=== PATIENT | male | born 1955 | race Caucasian/White ===

== ENCOUNTER 2020-10-15 20:34 | Emergency (ER) | payer SELFPAY ==
--- NOTE | ~2020-10-15 | XR_ITS ---
EXAMINATION: XR chest 2V DATE: 10/15/2020 21:48 INDICATION: Shortness of breath. Dizziness. TECHNIQUE: Frontal and lateral views of the chest were obtained on 3 radiographs. COMPARISON: None. FINDINGS: The lungs are hyperexpanded, consistent with chronic obstructive pulmonary disease. There i s mild scarring at the lung apices. 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 No pleural effusion or pneumothorax. The heart size is normal. IMPRESSION: 1. Chronic obstructive pulmonary disease. Reviewed, dictated and finalized at location A.
[2020-10-15 20:37] VITALS: BP 152/89; PULSE 102; RESP 24; TEMP 36.8; O2SAT 95
--- NOTE | 2020-10-15 20:38 | ED.SOB ---
HPI - SOB/Dyspnea General Chief Complaint: Shortness of Breath/Dyspnea Stated Complaint: sob Time Seen by Provider: 10/15/20 20:38 History of Present Illness HPI Narrative: 65 yo male with h/o COPD presents to the ED for SOB. He reports that he has had repeated episodes of SOB throughout the day. He says that he will feel fine then get himself all worked up and get short of breath agin. He says that he has been using his inhaler more than he is supposed to. Related Data Allergies Allergy/AdvReac Type Severity Reaction Status Date / Time No Known Allergies Allergy Mild Unverified 12/18/08 13:36 Review of Systems Review of Systems: All systems reviewed & are unremarkable except as noted in HPI and below Constitutional: Constitutional: Denies fever(s) ENT: Denies dizziness Cardiovascular: Cardiovascular: Denies chest pain Respiratory: Respiratory: Reports dyspnea and Reports wheezing Gastrointestinal: Gastrointestinal: Reports no additional gastrointestinal complaints Neurologic: Reports system reviewed and no additional complaints, except as documented Psychiatric: Psychiatric: Reports anxiety [facility] Past Medical History Medical History (Updated 10/19/20 @ 17:37 by Olu Parr MD) COPD (chronic obstructive pulmonary disease) Social History Social History (Updated 10/19/20 @ 17:38 by Olu Parr MD) Smoking status: Current every day smoker Gender identity (if verbalized by the patient): Male Exam Const: General: no acute distress and alert Orientation/consciousness: patient oriented x3 HENMT: Head: normal to inspection Neck: Neck: normal visual inspection Chest: Chest palpation & inspection: no tenderness Resp: Effort & Inspection: not labored and tachypneic Auscultation: clear to auscultation bilaterally, rhonchi, wheezes and diminished lung sounds Cardio: Jugular venous distension: no JVD Rate: regular rate Rhythm: regular rhythm Heart sounds: no murmurs GI: Inspection: non-distended GI Palp: Yes Soft to palpation and No Tenderness to palpation present (GI) Skin: General skin exam: normal color Neuro: General: patient oriented x3 and moves all extremities Speech: normal speech Gait exam (Neuro): Normal gait present Extrem: General: no edema Psych: Appearance: well kempt Affect: Anxious affect present Course Vital Signs Vital signs: Vital Signs Temperature 36.8 C 10/15/20 20:37 Pulse Rate 102 H 10/15/20 20:37 Respiratory Rate 24 H 10/15/20 20:37 Blood Pressure 152/89 H 10/15/20 20:37 Pulse Oximetry 95 10/15/20 20:37 Temperature 36.8 C 10/15/20 20:37 Pulse Rate 92 10/16/20 00:11 Respiratory Rate 18 10/16/20 00:11 Blood Pressure 162/90 H 10/16/20 00:11 Pulse Oximetry 95 10/16/20 00:11 MDM - SOB/Dyspnea MDM Narrative Medical decision making narrative: Improvement with nebulizer treatment. He reports that he has never had to take oral steroids for his COPD. I think a burst could significantly improve his symptoms. I will also prescribe a course of levaquin for his exacerbation. He is not interested in being admitted at this time. Differential Diagnosis Differential diagnosis: Likely acute exacerbation of chronic obstructive airways disease Medical Records Attestation: I reviewed the patient's medical records. Lab Data Attestation: I reviewed the patient's lab results. Result diagrams: 10/15/20 21:05 10/15/20 21:05 Labs: Lab Results 10/15/20 10/15/20 10/15/20 Range/Units 21:05 21:05 21:06 WBC 13.3 H (4.5-10.0) K/mm3 RBC 4.37 L (4.6-6.20) M/mm3 Hgb 14.3 (14.0-18.0) g/dL Hct 43.3 (42.0-52.0) % MCV 99.1 (80-100) fl MCH 32.7 (26-34) pg MCHC 33.0 (32-36) g/dl RDW 14.6 H (11.5-14.5) % Plt Count 233 (150-375) k/mm3 MPV 9.9 (7.4-10.4) fl Immature Gran % (Auto) 0.8 H (0-0.5) % Neut % (Auto) 57.7 (45.5-73.1) % Lymph % (Auto) 31.3
--- NOTE | 2020-10-15 20:50 | ECG_ITS ---
Measurements Intervals Uriah Rate: 87 P: 83 HI: 144 QRS: 66 QRSD: 118 T: 62 QT: 362 QTc: 437 Interpretive Statements SINUS RHYTHM INCOMPLETE RIGHT BUNDLE BRANCH BLOCK BASELINE ARTIFACT- I, III, AVL BORDERLINE ECG Electronically Signed On 10-16-2020 7:41:14 CDT by Hermann Turner D.O.
[2020-10-15] MEDS: SODIUM CHLORIDE 0.9% IV 1,000 ML 999 ML IV CONT (21:03)
[2020-10-15] MEDS: DEXAMETHASONE SOD PHOS INJ 4 MG/ML VIAL 10 MG IV PUSH (21:03)
[2020-10-15 21:10] VITALS: PULSE 85; RESP 19
[2020-10-15] MEDS: IPRATROPIUM BR 0.02% INH SOLN 0.5 MG/2.5 ML VIAL INHALATION (21:10)
[2020-10-15] MEDS: ALBUTEROL SULFATE NEB 2.5 MG/0.5 ML INH 5 MG INHALATION (21:10)
[2020-10-15 21:14] LABS: Basophils Absolute Auto 0.1 K/mm3 (0.0-0.1); Basophils Percent Auto 0.6 % (0.2-1.2); Eosinophils Absolute Auto 0.2 K/mm3 (0-0.3); Eosinophils Percent Auto 1.4 % (0-4.4); Hematocrit 43.3 % (42.0-52.0); Hemoglobin 14.3 g/dL (14.0-18.0); Immature Granulocyte Percent A 0.8 % (0-0.5); Lymphocytes Absolute Auto 4.17 K/mm3 (0.9-3.2); Lymphocytes Percent Auto 31.3 % (18.3-44.2); Mean Corpuscular Hemoglobin 32.7 pg (26-34); Mean Corpuscular Volume 99.1 fl (80-100); Mean Platelet Volume 9.9 fl (7.4-10.4); Monocytes Absolute Auto 1.1 K/mm3 (0.1-0.6); Monocytes Percent Auto 8.2 % (2.6-8.5); Neutrophils Absolute Auto 7.7 K/mm3 (1.3-6.7); Neutrophils Percent Auto 57.7 % (45.5-73.1); Platelet Count Result 233 k/mm3 (150-375); Red Blood Count 4.37 M/mm3 (4.6-6.20); Red Cell Distribution Width 14.6 % (11.5-14.5); White Blood Count 13.3 K/mm3 (4.5-10.0)
[2020-10-15 21:19] LABS: Alveolar/Arterial O2 Gradient 29.3 mmHg; Base Excess ABG 2.6 mEq/l (+/-2.0); Carboxyhemoglobin 3.7 % THb (0-2.0); Device ROOM AIR; Fractional Inspired Oxygen 21 %; HCO3 ABG 26.6 mEq/l (22.0-26.0); Methemoglobin ABG 0.2 %THb (0-1.5); Modified Allen's Test Pass; Oxygen Content ABG 18.8 %vol (16.0-22.0); Oxygen Saturation ABG 95.5 % (95.0-100.0); Oxyhemoglobin 91.7 % THb (90.0-100.0); PO2 ABG 73.7 mmHg (80.0-100.0); PO2 FiO2 Ratio Arterial Blood 3.51 %; Reduced Hemoglobin 4.4 %THb (0-5.0); Site Drawn RIGHT RADIAL; Total Hemoglobin 14.6 g/dL (12.0-18.0); pH ABG 7.452 (7.350-7.450)
[2020-10-15 21:23] LABS: Anion Gap 9 mmol/L (8-16); Blood Urea Nitrogen 16 mg/dL (9-20); Calcium 9.6 mg/dL (8.4-10.2); Carbon Dioxide 30 mmol/L (22-30); Chloride 100 mmol/L (98-107); Estimated CRCL calculation 65 ml/min; Estimated Glomerular Filt Rate > 60; Glucose 102 mg/dL (75-110); Potassium 4.5 mmol/L (3.4-5.0); Sodium 139 mmol/L (137-145)
[2020-10-15 21:25] VITALS: PULSE 83; RESP 20
--- NOTE | 2020-10-15 23:16 | PC.NURSE ---
walk test on portable pulse ox- pt was dizzy when standing, oxygen dropped to 92% and pt needed to stop to catch his breath . Report of walk test given to RIC Mckeon.
[2020-10-16 00:11] VITALS: BP 162/90; PULSE 92; RESP 18; O2SAT 95
== END 2020-10-16 00:11 | disposition home or self-care (01) ==
PROVIDERS: Emergency Provider Emergency Medicine
DX: J44.1 Chronic obstructive pulmonary disease with (acute) exacerbation (principal); F17.200 Nicotine dependence, unspecified, uncomplicated
CPT/HCPCS: 36415; 36600; 71046; 80048; 82375; 82805; 83050; 85025; 93005; 94640; 96361; 96374; 99284; J1100; J7030